=== PATIENT | female | born 1955 | race Two or more races ===

== ENCOUNTER → 2017-05-09 | Outpatient (CLI) | payer MEDICARE ==
[~2017-05-09] MED LIST: ACET-709 PO; PRED10TA14 PO; PRED20TA PO
== END ==
LOC: RAD 14:51
PROVIDERS: ATTEND Specialist
DX: M17.12 Unilateral primary osteoarthritis, left knee (principal); M25.462 Effusion, left knee; M06.9 Rheumatoid arthritis, unspecified; M81.0 Age-related osteoporosis without current pathological fracture
CPT/HCPCS: 77077

== ENCOUNTER → 2017-07-15 | Outpatient (CLI) | payer MEDICARE | END | disposition home or self-care (01) | LOC: CFH 07:45 | PROVIDERS: ATTEND Family Medicine | DX: Z12.31 Encounter for screening mammogram for malignant neoplasm of breast (principal) | CPT/HCPCS: 77067 ==

== ENCOUNTER 2018-03-21 10:33 | Emergency (ER) | payer MEDICARE ==
[~2018-03-21] VITALS: Ht 170.2 cm; Wt 92.0 kg
[2018-03-21 11:23] LABS: BASOPHILS # (AUTO) 0.01 x10^3/uL (0-0.1); BASOPHILS % (AUTO) 0 % (0-1); EOSINOPHILS # (AUTO) 0.23 x10^3/uL (0-0.4); EOSINOPHILS % (AUTO) 3 % (1-7); LYMPHOCYTES # (AUTO) 0.98 x10^3/uL (1-3.4); LYMPHOCYTES % (AUTO) 10 % (22-44); MD NO; MEAN CORPUSCULAR HEMOGLOBIN 29.1 pg (27.0-34.8); MEAN CORPUSCULAR HGB CONC 32.6 g/dL (32.4-35.8); MEAN CORPUSCULAR VOLUME 89.2 fL (80-100); MEAN PLATELET VOLUME 6.4 fL (7.4-10.4); MONOCYTES # (AUTO) 0.26 x10^3/uL (0.2-0.8); MONOCYTES % (AUTO) 3 % (2-9); NEUTROPHILS # (AUTO) 8.03 x10^3/uL (1.8-6.8); NEUTROPHILS % (AUTO) 84 % (42-75); PLATELET COUNT 345 x10^3/uL (130-400); RED BLOOD COUNT 4.23 x10^6/uL (3.82-5.3); RED CELL DISTRIBUTION WIDTH 13.7 % (9.6-15.2)
[2018-03-21 11:36] LABS: TROPONIN I < 0.015 ng/mL (0.000-0.045)
[2018-03-21 11:40] LABS: ALANINE AMINOTRANSFERASE 16 U/L (12-78); ALBUMIN 3.3 g/dL (3.4-5.0); ANION GAP 6 mmol/L (5-15); CALCIUM 8.2 mg/dL (8.5-10.1); CHLORIDE 108 mmol/L (98-107); CREATININE 0.81 mg/dL (0.55-1.02)
[2018-03-21 11:42] LABS: ALKALINE PHOSPHATASE 45 U/L (45-117); BILIRUBIN,TOTAL 0.6 mg/dL (0.2-1.0); TOTAL PROTEIN 7.5 g/dL (6.4-8.2)
[2018-03-21] MEDS ORDERED: KETOROLAC 30 MG/1 ML ONE (12:29)
[2018-03-21] MEDS ORDERED: DIAZEPAM 5 MG TABLET ONE (12:30)
[2018-03-21] MEDS ORDERED: DIAZEPAM 5 MG TABLET PO ONE (12:30)
[2018-03-21] MEDS ORDERED: KETOROLAC 30 MG/1 ML IM ONE (12:30)
[2018-03-21] MEDS ORDERED: METH2.5T PO (12:42)
[2018-03-21] MEDS ORDERED: ALEN70TA5 PO (12:42)
[2018-03-21] MEDS ORDERED: PRED5TAB PO (12:42)
[2018-03-21] MEDS ORDERED: SULF500T47 PO (12:42)
[2018-03-21 14:30] VITALS: BP 136/68
== END 2018-03-21 14:51 | disposition home or self-care (01) ==
LOC: ED 14:30
DX: M54.6 Pain in thoracic spine (principal); R06.00 Dyspnea, unspecified; M06.9 Rheumatoid arthritis, unspecified
CPT/HCPCS: 36415; 71046; 72072; 80053; 84484; 85025; 93005; 96372; 99284; J1885

== ENCOUNTER 2018-07-04 10:37 | Emergency (ER) | payer MEDICARE ==
[~2018-07-04] VITALS: Ht 170.2 cm; Wt 86.8 kg
[~2018-07-04 10:37] MED LIST changes: +ALEN70TA6 PO; +METH2.5T PO; +PRED5TAB PO; +SULF500T47 PO
[2018-07-04] MEDS ORDERED: METOCLOPRAMIDE 5 MG/ML, 2ML IVPush ONE (11:30)
[2018-07-04] MEDS ORDERED: SODIUM CHLORIDE FLUSH 10ML SYR IVF ONE (11:30)
[2018-07-04 11:46] LABS: BASOPHILS # (AUTO) 0.01 x10^3/uL (0-0.1); BASOPHILS % (AUTO) 0 % (0-1); EOSINOPHILS # (AUTO) 0.28 x10^3/uL (0-0.4); EOSINOPHILS % (AUTO) 5 % (1-7); LYMPHOCYTES # (AUTO) 1.26 x10^3/uL (1-3.4); LYMPHOCYTES % (AUTO) 24 % (22-44); MD NO; MEAN CORPUSCULAR HEMOGLOBIN 28.5 pg (27.0-34.8); MEAN CORPUSCULAR HGB CONC 32.8 g/dL (32.4-35.8); MEAN PLATELET VOLUME 6.4 fL (7.4-10.4); MONOCYTES # (AUTO) 0.34 x10^3/uL (0.2-0.8); MONOCYTES % (AUTO) 6 % (2-9); NEUTROPHILS # (AUTO) 3.41 x10^3/uL (1.8-6.8); NEUTROPHILS % (AUTO) 64 % (42-75); PLATELET COUNT 278 x10^3/uL (130-400); RED BLOOD COUNT 4.11 x10^6/uL (3.82-5.3); RED CELL DISTRIBUTION WIDTH 14.5 % (9.6-15.2)
[2018-07-04] MEDS ORDERED: METOCLOPRAMIDE 5 MG/ML, 2ML ONE (11:52)
[2018-07-04 11:57] LABS: CHLORIDE 103 mmol/L (98-107)
[2018-07-04 12:03] LABS: ALBUMIN 3.2 g/dL (3.4-5.0); ANION GAP 7 mmol/L (5-15); CALCIUM 8.2 mg/dL (8.5-10.1); CREATININE 0.88 mg/dL (0.55-1.02)
[2018-07-04] MEDS ORDERED: KETOROLAC 30 MG/1 ML IVPush ONE (13:00)
--- NOTE | 2018-07-04 13:08 | NUR ---
REPORT TAKEN FROM NIHARIKA MARIANO, ASSUMING CARE AT THIS TIME. PT UP TO BATHROOM WITH STEADY GAIT, PT TO RECEIVE TORADOL AND BE DISCHARGED.
[2018-07-04] MEDS ORDERED: KETOROLAC 30 MG/1 ML ONE (13:14)
[2018-07-04 13:48] VITALS: BP 128/64
--- NOTE | 2018-07-04 13:49 | NUR ---
PT REPORTS HEADACHE RESOLVED. PT A&OX4, RESPS EVEN AND UNLABORED. NEURO INTACT. PT GIVEN DC INSTRUCTIONS AND SCRIPT. PT EDUCATED REGARDING DC RX FOR AUGMENTIN, NAPROXEN, AND FLONASE. PT AMB TO DC DESK WITH STEADY GAIT, NADN AT DC.
== END 2018-07-04 13:50 | disposition home or self-care (01) ==
LOC: ED 12:31
DX: R51 Headache (principal); J01.00 Acute maxillary sinusitis, unspecified; M06.9 Rheumatoid arthritis, unspecified
CPT/HCPCS: 36415; 70450; 80048; 82040; 85025; 96374; 96375; 99284; J1885; J2765

== ENCOUNTER 2018-10-23 20:45 | Inpatient (IN) | payer MEDICARE ==
[~2018-10-23] VITALS: Ht 170.2 cm; Wt 95.0 kg
[2018-10-23] MEDS ORDERED: ACETAMINOPHEN 500 MG TABLET PO ONE (21:00)
[2018-10-23] MEDS ORDERED: SODIUM CHLORIDE FLUSH 10ML SYR IVF ONE (21:00)
[2018-10-23] MEDS ORDERED: KETOROLAC 30 MG/1 ML IVPush ONE (21:00)
[2018-10-23] MEDS ORDERED: ACETAMINOPHEN 500 MG TABLET ONE (21:04)
[2018-10-23 21:27] LABS: BASOPHILS # (AUTO) 0.01 x10^3/uL (0-0.1); BASOPHILS % (AUTO) 0 % (0-1); EOSINOPHILS # (AUTO) 0.01 x10^3/uL (0-0.4); EOSINOPHILS % (AUTO) 0 % (1-7); LYMPHOCYTES # (AUTO) 0.56 x10^3/uL (1-3.4); LYMPHOCYTES % (AUTO) 4 % (22-44); MD NO; MEAN CORPUSCULAR HEMOGLOBIN 30.4 pg (27.0-34.8); MEAN CORPUSCULAR HGB CONC 32.7 g/dL (32.4-35.8); MEAN CORPUSCULAR VOLUME 92.9 fL (80-100); MEAN PLATELET VOLUME 6.7 fL (7.4-10.4); MONOCYTES % (AUTO) 4 % (2-9); NEUTROPHILS # (AUTO) 11.84 x10^3/uL (1.8-6.8); NEUTROPHILS % (AUTO) 92 % (42-75); PLATELET COUNT 169 x10^3/uL (130-400); RED BLOOD COUNT 4.22 x10^6/uL (3.82-5.3); RED CELL DISTRIBUTION WIDTH 15.4 % (9.6-15.2)
[2018-10-23] MEDS ORDERED: KETOROLAC 30 MG/1 ML ONE (21:34)
[2018-10-23 21:35] LABS: PROTHROMBIN TIME 10.5 Seconds (9.6-11.5)
[2018-10-23 21:36] LABS: ALANINE AMINOTRANSFERASE 26 U/L (12-78); ALBUMIN 2.9 g/dL (3.4-5.0); ANION GAP 8 mmol/L (5-15); CALCIUM 8.5 mg/dL (8.5-10.1); CHLORIDE 100 mmol/L (98-107)
[2018-10-23 21:38] LABS: ALKALINE PHOSPHATASE 94 U/L (45-117); BILIRUBIN,TOTAL 0.6 mg/dL (0.2-1.0); TOTAL PROTEIN 7.3 g/dL (6.4-8.2)
--- NOTE | 2018-10-23 21:40 | NUR ---
PT HERE FOR FEVER, BODY ACHES AND COUGH X 1 WEEK. PT MEDICATED FOR PAIN AND FEVER. PT UP TO BATHROOM FOR UA SAMPLE
--- NOTE | 2018-10-23 21:54 | NUR ---
UA SENT TO LAB. TEMP IMPROVED TO 100.1. VSS. CALL LIGHT IN REACH
[2018-10-23] MEDS ORDERED: SODIUM CHLORIDE 0.9% 1,000ML IVBOLUS ONE (22:00)
[2018-10-23 22:05] LABS: CULTURE INDICATED? YES; MICROSCOPIC INDICATED
[2018-10-23] MEDS ORDERED: CEFTRIAXONE PMX 1GM/50ML 50 ML IV ONE (22:30)
[2018-10-23] MEDS ORDERED: CEFTRIAXONE PMX 1GM/50ML 50 ML ONE (22:35)
--- NOTE | 2018-10-23 22:47 | NUR ---
ABX AND FLUIDS RUNNING. ADMITTING MD AT BEDSIDE
[2018-10-23] MEDS ORDERED: ONDANSETRON 2MG/ML, 2ML IVPush PRN (23:00)
[2018-10-23 23:42] VITALS: BP 133/75
[2018-10-24] MEDS: SODIUM CHLORIDE 0.9% 1,000 ML IV SCH ×3 (00:06→16:45)
[2018-10-24] MEDS ORDERED: ACETAMINOPHEN 500 MG TABLET PO PRN (00:30)
[2018-10-24] MEDS: ACETAMINOPHEN 325 MG TABLET PO PRN ×3 (00:42→19:30)
[2018-10-24 03:53] VITALS: BP 127/81
[2018-10-24 05:05] LABS: BASOPHILS % (AUTO) 0 % (0-1); EOSINOPHILS # (AUTO) 0.06 x10^3/uL (0-0.4); EOSINOPHILS % (AUTO) 1 % (1-7); LYMPHOCYTES # (AUTO) 0.91 x10^3/uL (1-3.4); LYMPHOCYTES % (AUTO) 8 % (22-44); MD NO; MEAN CORPUSCULAR HEMOGLOBIN 30.4 pg (27.0-34.8); MEAN CORPUSCULAR HGB CONC 32.7 g/dL (32.4-35.8); MEAN CORPUSCULAR VOLUME 92.8 fL (80-100); MONOCYTES # (AUTO) 0.92 x10^3/uL (0.2-0.8); MONOCYTES % (AUTO) 8 % (2-9); NEUTROPHILS # (AUTO) 9.76 x10^3/uL (1.8-6.8); NEUTROPHILS % (AUTO) 84 % (42-75); PLATELET COUNT 144 x10^3/uL (130-400); RED BLOOD COUNT 3.68 x10^6/uL (3.82-5.3); RED CELL DISTRIBUTION WIDTH 15.6 % (9.6-15.2)
[2018-10-24 05:15] LABS: ANION GAP 8 mmol/L (5-15); CALCIUM 7.8 mg/dL (8.5-10.1); CHLORIDE 105 mmol/L (98-107); CREATININE 0.95 mg/dL (0.55-1.02)
[2018-10-24 05:25] LABS: THYROID STIMULATING HORMONE 0.428 mIU/L (0.358-3.740)
[2018-10-24 07:00] VITALS: BP 142/84
[2018-10-24] MEDS ORDERED: CEFTRIAXONE PMX 1GM/50ML 50 ML IV SCH (09:00)
[2018-10-24 13:00] VITALS: BP 145/75
[2018-10-24] MEDS: CEFTRIAXONE PMX 2GM/50ML 50 ML IV SCH (17:50)
[2018-10-24 19:02] VITALS: BP 139/76
[2018-10-25] MEDS: SODIUM CHLORIDE 0.9% 1,000 ML IV SCH ×3 (00:17→17:00)
[2018-10-25 01:05] VITALS: BP 132/63
[2018-10-25] MEDS: CEFTRIAXONE PMX 2GM/50ML 50 ML IV SCH ×2 (05:22→17:00)
[2018-10-25 05:28] LABS: BASOPHILS # (AUTO) 0.02 x10^3/uL (0-0.1); BASOPHILS % (AUTO) 0 % (0-1); EOSINOPHILS # (AUTO) 0.09 x10^3/uL (0-0.4); EOSINOPHILS % (AUTO) 1 % (1-7); LYMPHOCYTES # (AUTO) 1.15 x10^3/uL (1-3.4); LYMPHOCYTES % (AUTO) 14 % (22-44); MD NO; MEAN CORPUSCULAR HEMOGLOBIN 29.3 pg (27.0-34.8); MEAN CORPUSCULAR HGB CONC 31.5 g/dL (32.4-35.8); MEAN PLATELET VOLUME 7.1 fL (7.4-10.4); MONOCYTES # (AUTO) 0.68 x10^3/uL (0.2-0.8); MONOCYTES % (AUTO) 8 % (2-9); NEUTROPHILS # (AUTO) 6.17 x10^3/uL (1.8-6.8); NEUTROPHILS % (AUTO) 76 % (42-75); PLATELET COUNT 144 x10^3/uL (130-400); RED BLOOD COUNT 3.85 x10^6/uL (3.82-5.3); RED CELL DISTRIBUTION WIDTH 15.7 % (9.6-15.2)
[2018-10-25 05:40] LABS: ANION GAP 5 mmol/L (5-15); CHLORIDE 111 mmol/L (98-107)
[2018-10-25 05:41] LABS: CREATININE 0.93 mg/dL (0.55-1.02)
[2018-10-25 06:15] LABS: HCT (SEDRATE) 35.8 % (34.6-47.8)
[2018-10-25 07:51] VITALS: BP 163/83
[2018-10-25 13:00] VITALS: BP 151/87
[2018-10-25 18:54] VITALS: BP 167/82
[2018-10-26 01:58] VITALS: BP 164/80
[2018-10-26 05:17] LABS: BASOPHILS # (AUTO) 0.02 x10^3/uL (0-0.1); BASOPHILS % (AUTO) 0 % (0-1); EOSINOPHILS # (AUTO) 0.17 x10^3/uL (0-0.4); EOSINOPHILS % (AUTO) 2 % (1-7); LYMPHOCYTES % (AUTO) 22 % (22-44); MD NO; MEAN CORPUSCULAR HEMOGLOBIN 30.4 pg (27.0-34.8); MEAN CORPUSCULAR HGB CONC 32.8 g/dL (32.4-35.8); MEAN CORPUSCULAR VOLUME 92.7 fL (80-100); MEAN PLATELET VOLUME 6.9 fL (7.4-10.4); MONOCYTES # (AUTO) 0.51 x10^3/uL (0.2-0.8); MONOCYTES % (AUTO) 7 % (2-9); NEUTROPHILS # (AUTO) 5.24 x10^3/uL (1.8-6.8); NEUTROPHILS % (AUTO) 69 % (42-75); PLATELET COUNT 164 x10^3/uL (130-400); RED BLOOD COUNT 3.75 x10^6/uL (3.82-5.3); RED CELL DISTRIBUTION WIDTH 15.7 % (9.6-15.2)
[2018-10-26] MEDS: CEFTRIAXONE PMX 2GM/50ML 50 ML IV SCH (05:17)
[2018-10-26 05:31] LABS: ANION GAP 9 mmol/L (5-15); CALCIUM 8.1 mg/dL (8.5-10.1); CHLORIDE 108 mmol/L (98-107); CREATININE 0.95 mg/dL (0.55-1.02)
[2018-10-26 08:13] VITALS: BP 147/78
[2018-10-26] MEDS: ACETAMINOPHEN 325 MG TABLET PO PRN (08:48)
[2018-10-26] MEDS: SODIUM CHLORIDE 0.9% 1,000 ML IV SCH (12:31)
[2018-10-26 13:31] VITALS: BP 141/84
[2018-10-26] MEDS ORDERED: LEVOFLOXACIN 750 MG TABLET PO SCH (19:00)
[2018-10-26 20:16] VITALS: BP 153/66
[2018-10-27 01:46] VITALS: BP 120/76
[2018-10-27] MEDS: SODIUM CHLORIDE 0.9% 1,000 ML IV SCH (05:20)
[2018-10-27 05:24] LABS: HCT (SEDRATE) 34.8 % (34.6-47.8)
[2018-10-27 05:26] LABS: BASOPHILS # (AUTO) 0.03 x10^3/uL (0-0.1); BASOPHILS % (AUTO) 0 % (0-1); EOSINOPHILS % (AUTO) 3 % (1-7); LYMPHOCYTES # (AUTO) 1.67 x10^3/uL (1-3.4); LYMPHOCYTES % (AUTO) 21 % (22-44); MD NO; MEAN CORPUSCULAR HEMOGLOBIN 30.4 pg (27.0-34.8); MEAN CORPUSCULAR HGB CONC 32.8 g/dL (32.4-35.8); MEAN CORPUSCULAR VOLUME 92.7 fL (80-100); MEAN PLATELET VOLUME 6.6 fL (7.4-10.4); MONOCYTES # (AUTO) 0.41 x10^3/uL (0.2-0.8); MONOCYTES % (AUTO) 5 % (2-9); NEUTROPHILS # (AUTO) 5.59 x10^3/uL (1.8-6.8); NEUTROPHILS % (AUTO) 71 % (42-75); PLATELET COUNT 200 x10^3/uL (130-400); RED BLOOD COUNT 3.74 x10^6/uL (3.82-5.3); RED CELL DISTRIBUTION WIDTH 15.2 % (9.6-15.2)
[2018-10-27 05:36] LABS: ANION GAP 7 mmol/L (5-15); CALCIUM 8.3 mg/dL (8.5-10.1); CHLORIDE 107 mmol/L (98-107); CREATININE 0.91 mg/dL (0.55-1.02)
[2018-10-27 07:08] VITALS: BP 161/85
[2018-10-27 08:41] VITALS: BP 136/84
[2018-10-27] MEDS: ACETAMINOPHEN 325 MG TABLET PO PRN (12:29)
[2018-10-27 13:22] VITALS: BP 135/84
[2018-10-27] MEDS ORDERED: LEVO750T26 PO (13:28)
[2018-10-29] MEDS ORDERED: CYAN250013 PO (19:29)
== END 2018-10-27 15:11 | disposition home or self-care (01) | DRG 872 ==
LOC: ED 22:01 → EDIP 22:31 → 3NE 23:10 → DCLOUNGE 10-27 14:55
PROVIDERS: ADMIT Internal Medicine; ATTEND Internal Medicine
DX: A41.9 Sepsis, unspecified organism (principal); N10 Acute pyelonephritis; E86.0 Dehydration; M06.9 Rheumatoid arthritis, unspecified
CPT/HCPCS: 36415; 71045; 80048; 80053; 81001; 83605; 84145; 84443; 85025; 85610; 85651; 85730; 86140; 87040; 87077; 87086; 87186; 96374; 96375; 99285; G0378; J0696; J1885; J2405; J7030; J7512

== ENCOUNTER 2018-11-02 23:21 | Observation (INO) | payer MEDICARE ==
[~2018-11-02] VITALS: Ht 170.2 cm; Wt 95.1 kg
[~2018-11-02 23:21] MED LIST changes: +CYAN250013 PO; +LEVO750T26 PO
--- NOTE | 2018-11-02 23:35 | NUR ---
PATIENT TAKEN TO CT SCAN.
--- NOTE | 2018-11-03 00:05 | NUR ---
pt called to room from lobby
[2018-11-03 00:11] LABS: BASOPHILS # (AUTO) 0.04 x10^3/uL (0-0.1); BASOPHILS % (AUTO) 1 % (0-1); EOSINOPHILS % (AUTO) 4 % (1-7); LYMPHOCYTES # (AUTO) 2.74 x10^3/uL (1-3.4); LYMPHOCYTES % (AUTO) 33 % (22-44); MD NO; MEAN CORPUSCULAR HEMOGLOBIN 30.2 pg (27.0-34.8); MEAN CORPUSCULAR HGB CONC 32.6 g/dL (32.4-35.8); MEAN CORPUSCULAR VOLUME 92.7 fL (80-100); MEAN PLATELET VOLUME 5.8 fL (7.4-10.4); MONOCYTES # (AUTO) 0.48 x10^3/uL (0.2-0.8); MONOCYTES % (AUTO) 6 % (2-9); NEUTROPHILS # (AUTO) 4.67 x10^3/uL (1.8-6.8); NEUTROPHILS % (AUTO) 57 % (42-75); PLATELET COUNT 572 x10^3/uL (130-400); RED BLOOD COUNT 4.17 x10^6/uL (3.82-5.3); RED CELL DISTRIBUTION WIDTH 14.9 % (9.6-15.2)
--- NOTE | 2018-11-03 00:11 | NUR ---
PT. REPORTS NUMBNESS IN BILAT ARMS FROM HAND TO SHOULDERS. PT. REPORTS HAS BEEN TAKING SUPPLEMENTS ORDERED LAST WEEK. REPORTS NUMBNESS HAS BEEN INCREASING. MID BACK PAIN; DENIES INJURY. CT SCANS ARE RESULTED ALREADY. LABS DRAWN. DR. ALVARADO AT TO EVAL PT. AND DISCUSS POC NOW.
[2018-11-03 00:20] LABS: ANION GAP 8 mmol/L (5-15); CALCIUM 8.5 mg/dL (8.5-10.1); CHLORIDE 107 mmol/L (98-107); CREATININE 0.92 mg/dL (0.55-1.02)
[2018-11-03 00:39] LABS: C-REACTIVE PROTEIN, QUANT 0.81 mg/dL (0.02-0.49)
[2018-11-03 01:21] LABS: HCT (SEDRATE) 38.6 % (34.6-47.8)
--- NOTE | 2018-11-03 01:30 | NUR ---
MRI SCREENING FORM HANDED TO WILNER FROM RADIOLOGY.
--- NOTE | 2018-11-03 02:37 | NUR ---
PT. IS OUT OF ROOM IN MRI.
--- NOTE | 2018-11-03 03:15 | NUR ---
PT. REMAINS OUT OF ROOM FOR MRI.
[2018-11-03] MEDS ORDERED: GADOBUTROL 10 MMOL/10 ML PFS ONE (03:49)
--- NOTE | 2018-11-03 03:55 | NUR ---
PT. REMAINS OUT OF ROOM IN MRI.
--- NOTE | 2018-11-03 04:13 | NUR ---
PT. RETURNED FROM MRI AT THIS TIME.
--- NOTE | 2018-11-03 04:29 | NUR ---
PT. AMBULATORY TO BR DOWN MOLINA WITH STEADY GAIT.
[2018-11-03] MEDS ORDERED: KETOROLAC 30 MG/1 ML ONE (04:55)
--- NOTE | 2018-11-03 04:59 | NUR ---
PT. REQUESTING PAIN MEDS. DISCUSSED WITH DR. ALVARADO, NEW ORDERS RECEIVED. PT. MEDICATED PER JUN. MRI RESULTS PENDING.
[2018-11-03] MEDS ORDERED: KETOROLAC 30 MG/1 ML IVPush ONE (05:00)
--- NOTE | 2018-11-03 05:23 | NUR ---
PT. REPORTS PAIN IS NO BETTER 10/10 BILAT ARMS DESPITE PAIN MEDS. WILL DISCUSS WITH ERP.
--- NOTE | 2018-11-03 05:25 | NUR ---
DR. ALVARADO MADE AWARE OF PT. C/O 02/05 BILAT ARM PAIN. NO NEW ORDERS AT THIS TIME. HE WILL SPEAK WITH PT. SOON TO DISCUSS ED FINDINGS.
--- NOTE | 2018-11-03 05:47 | NUR ---
DR. ALVARADO AT BS NOW.
--- NOTE | 2018-11-03 05:56 | NUR ---
PT. TO BE ADMIT.
--- NOTE | 2018-11-03 06:11 | NUR ---
PT. CONTINUES TO C/O 10/10 UPPER SHOULDER AND BILAT ARM PAIN. WILL DISCUSS WITH ERP AGAIN. PT. STATES SHE DID TELL HIM WHEN HE WAS IN FOR RECHECK. NO NEW ORDERS HAVE BEEN RECEIVED.
[2018-11-03] MEDS ORDERED: OXYcodone/APAP 5/325MG TABLET ONE (06:16)
[2018-11-03] MEDS ORDERED: PRED5TAB PO (06:21)
[2018-11-03] MEDS ORDERED: POTA10TA5 PO (06:21)
[2018-11-03] MEDS ORDERED: CEFD300C37 PO (06:21)
[2018-11-03] MEDS ORDERED: OXYcodone/APAP 5/325MG TABLET PO ONE (06:30)
--- NOTE | 2018-11-03 06:47 | NUR ---
FIRST ATTEMPT TO CALL REPORT TO FLOOR.
--- NOTE | 2018-11-03 06:54 | NUR ---
REPORT TO NIHARIKA FLOWER. FLOOR READY FOR PT. TRANSPORT.
[2018-11-03 07:23] VITALS: BP 149/93
[2018-11-03 13:54] VITALS: BP 131/86
[2018-11-03] MEDS ORDERED: LIDODERM 5% PATCH TD PRN (14:30)
[2018-11-03] MEDS ORDERED: ENOXAPARIN 40 MG/0.4 ML SQ SCH (14:30)
[2018-11-03] MEDS ORDERED: DOCUSATE 100 MG CAPSULE PO PRN (14:30)
[2018-11-03] MEDS ORDERED: LABETALOL 5MG/ML, 20ML IVPush PRN (14:30)
[2018-11-03] MEDS ORDERED: ONDANSETRON ODT 4 MG PO PRN (14:30)
[2018-11-03] MEDS ORDERED: BISACODYL 10 MG SUPP PR PRN (14:30)
[2018-11-03] MEDS ORDERED: hydrALAzine 20 MG/ML, 1ML IVPush PRN (14:30)
[2018-11-03] MEDS ORDERED: ACETAMINOPHEN 325 MG TABLET PO PRN (14:30)
[2018-11-03] MEDS ORDERED: GABA100C PO (16:10)
[2018-11-03] MEDS ORDERED: ACET325T26 PO (16:10)
[2018-11-03] MEDS ORDERED: FAMOTIDINE 20 MG TABLET PO SCH (21:00)
[2018-11-03] MEDS ORDERED: CEFDINIR 300 MG CAPSULE PO SCH (21:00)
[2018-11-03] MEDS ORDERED: POTASSIUM CHLORIDE 10 MEQ TABLET.ER PO SCH (21:00)
== END 2018-11-03 18:32 | disposition home or self-care (01) ==
LOC: ED 11-03 01:22 → 4NOR 11-03 07:02 → ED 11-03 10:08 → INTOOBSV 11-03 10:09 → 4NOR 11-03 10:09
PROVIDERS: ADMIT Internal Medicine; ATTEND Internal Medicine
DX: R20.2 Paresthesia of skin (principal); M62.81 Muscle weakness (generalized); M54.6 Pain in thoracic spine; M25.78 Osteophyte, vertebrae; Z79.899 Other long term (current) drug therapy; Z87.39 Personal history of other diseases of the musculoskeletal system and connective tissue
CPT/HCPCS: 36415; 72125; 72128; 72156; 72157; 80048; 83735; 85025; 85651; 86140; 96374; 99285; A9585; G0378; J1885; Q0162

== ENCOUNTER 2020-02-18 06:37 | Inpatient (IN) | payer MEDICARE ==
[~2020-02-18] VITALS: Ht 170.2 cm; Wt 109.9 kg
[~2020-02-18 06:37] MED LIST changes: +ACET325T26 PO; +CEFD300C37 PO; +GABA100C PO; +POTA10TA5 PO
[2020-02-18 07:51] LABS: BASOPHILS % (AUTO) 1 % (0-1); EOSINOPHILS % (AUTO) 3 % (1-7); LYMPHOCYTES % (AUTO) 15 % (22-44); MEAN CORPUSCULAR HEMOGLOBIN 30.2 pg (27.0-34.8); MEAN CORPUSCULAR HGB CONC 33.1 g/dL (32.4-35.8); MEAN PLATELET VOLUME 6.5 fL (7.4-10.4); MONOCYTES % (AUTO) 7 % (2-9); NEUTROPHILS % (AUTO) 76 % (42-75); PLATELET COUNT 188 x10^3/uL (130-400); RED BLOOD COUNT 4.58 x10^6/uL (3.82-5.3); RED CELL DISTRIBUTION WIDTH 13.3 % (9.6-15.2)
[2020-02-18 07:53] LABS: MD NO
--- NOTE | 2020-02-18 07:58 | NUR ---
INFECTION PREVENTIONIST: PT TO ROOM FROM LOBBY VIA W/C
[2020-02-18 08:00] LABS: ALBUMIN 3.1 g/dL (3.4-5.0); ANION GAP 6 mmol/L (5-15); CALCIUM 8.2 mg/dL (8.5-10.1); CHLORIDE 93 mmol/L (98-107)
[2020-02-18 08:05] LABS: ALANINE AMINOTRANSFERASE 31 U/L (12-78); ALKALINE PHOSPHATASE 63 U/L (45-117); BILIRUBIN,TOTAL 0.9 mg/dL (0.2-1.0); CREATININE 0.89 mg/dL (0.55-1.02); TOTAL PROTEIN 6.9 g/dL (6.4-8.2)
--- NOTE | 2020-02-18 08:37 | NUR ---
PT CHART REVIEWED AND PLACED FOR RECHECK.
--- NOTE | 2020-02-18 08:47 | NUR ---
PT TO ROOM 36 W/ C/O COUGH, WEKNESS, FATIGUE, MILD PEREZ X 2 DAYS. DENIES ANY KNOWN EXPOSURE TO COVID-19. PT STATES FAMILY AT HOME W/O SX. PT RESTING ON [employer]. KAREN. MONITORS APPLIED. VSS.
--- NOTE | 2020-02-18 09:09 | NUR ---
PT RESTING ON GURNEY. NADN. CARMONA.
[2020-02-18] MEDS ORDERED: ACETAMINOPHEN 500 MG TABLET PO ONE (10:00)
[2020-02-18] MEDS ORDERED: KETOROLAC 30 MG/1 ML IVPush ONE (10:00)
[2020-02-18] MEDS ORDERED: CEFTRIAXONE PMX 1GM/50ML 50 ML IV ONE (10:30)
[2020-02-18] MEDS ORDERED: SODIUM CHLORIDE 0.9% 1,000 ML IV ONE (10:30)
[2020-02-18] MEDS ORDERED: POTASSIUM CHLORIDE 40 MEQ in SODIUM CHLORIDE 0.9% 500 ML IV ONE (10:30)
[2020-02-18] MEDS ORDERED: DOXYCYCLINE 100 MG in DEXTROSE 5% 250 ML IV SCH (10:30)
[2020-02-18] MEDS ORDERED: KETOROLAC 30 MG/1 ML ONE (10:42)
[2020-02-18] MEDS ORDERED: CEFTRIAXONE PMX 1GM/50ML 50 ML ONE (10:42)
[2020-02-18] MEDS ORDERED: ACETAMINOPHEN 500 MG TABLET ONE (10:42)
--- NOTE | 2020-02-18 11:05 | NUR ---
PT RESTING ON GURNEY. NADN. CARMONA.
[2020-02-18 11:57] LABS: RAPID INFLUENZA A Negative (Negative); RAPID INFLUENZA B Negative (Negative)
--- NOTE | 2020-02-18 12:06 | NUR ---
PT RESTING ON GURNEY. NADN. CARMONA.
--- NOTE | 2020-02-18 13:11 | NUR ---
REPORT GIVEN TO ADRIANNE MORRIS RN. ALL QUESTIONS ANSWERED. AWAITING PT TRANSPORT.
[2020-02-18 13:46] VITALS: BP 107/65
[2020-02-18] MEDS ORDERED: VANCOMYCIN PER PHARMACY MC PRN (16:00)
[2020-02-18] MEDS ORDERED: VANCOMYCIN PMX 1GM/200ML 200 ML IV ONE (16:00)
[2020-02-18] MEDS ORDERED: GUAIFENESIN/DM 200-20MG, 10ML UDC PO PRN (16:00)
[2020-02-18] MEDS ORDERED: ONDANSETRON 2MG/ML, 2ML IVPush PRN (16:00)
[2020-02-18] MEDS ORDERED: ACETAMINOPHEN 325 MG TABLET PO PRN (16:00)
[2020-02-18] MEDS ORDERED: POLYETHYLENE GLYCOL 17 GM PACKET PO PRN (16:00)
[2020-02-18] MEDS ORDERED: VANCOMYCIN 2,500 MG in SODIUM CHLORIDE 0.9% 500 ML IV ONE (17:00)
[2020-02-18] MEDS ORDERED: PHARMACOKINETIC CONSULTATION MC ONE (17:00)
[2020-02-18] MEDS ORDERED: PHARMACOKINETIC MONITORING MC PRN (17:00)
[2020-02-18] MEDS: SODIUM CHLORIDE 0.9% 1,000 ML IV SCH (17:10)
[2020-02-18] MEDS: PIPERACILLIN/TAZO/PMX 3.375GM 50 ML IV SCH ×2 (17:10→23:04)
[2020-02-18] MEDS: ENOXAPARIN 40 MG/0.4 ML SQ SCH (17:18)
[2020-02-18] MEDS: POTASSIUM CHLORIDE 20 MEQ TAB.ER.PRT PO SCH (17:18)
[2020-02-18] MEDS ORDERED: BUTALB/APAP/CAFFEINE 50MG/325MG/40MG PO PRN (21:00)
[2020-02-18] MEDS: GABAPENTIN 100 MG CAPSULE PO SCH (21:27)
[2020-02-18 21:55] VITALS: BP 169/84
[2020-02-19] MEDS ORDERED: DOXYCYCLINE 100 MG in DEXTROSE 5% 250 ML IV SCH
[2020-02-19 02:04] VITALS: BP 110/68
[2020-02-19] MEDS: PIPERACILLIN/TAZO/PMX 3.375GM 50 ML IV SCH ×4 (04:00→21:46)
[2020-02-19 05:14] LABS: BASOPHILS % (AUTO) 1 % (0-1); EOSINOPHILS % (AUTO) 5 % (1-7); LYMPHOCYTES % (AUTO) 22 % (22-44); MEAN CORPUSCULAR HEMOGLOBIN 30.1 pg (27.0-34.8); MEAN PLATELET VOLUME 6.4 fL (7.4-10.4); MONOCYTES % (AUTO) 12 % (2-9); NEUTROPHILS % (AUTO) 60 % (42-75); PLATELET COUNT 178 x10^3/uL (130-400); RED BLOOD COUNT 4.17 x10^6/uL (3.82-5.3); RED CELL DISTRIBUTION WIDTH 13.4 % (9.6-15.2)
[2020-02-19 05:24] LABS: ALANINE AMINOTRANSFERASE 22 U/L (12-78); ALBUMIN 2.7 g/dL (3.4-5.0); ANION GAP 8 mmol/L (5-15); CALCIUM 8.2 mg/dL (8.5-10.1); CHLORIDE 109 mmol/L (98-107); CREATININE 0.81 mg/dL (0.55-1.02)
[2020-02-19 05:27] LABS: ALKALINE PHOSPHATASE 49 U/L (45-117); BILIRUBIN,TOTAL 0.7 mg/dL (0.2-1.0); TOTAL PROTEIN 5.9 g/dL (6.4-8.2)
[2020-02-19 05:31] LABS: MD NO
[2020-02-19 07:07] VITALS: BP 128/77
[2020-02-19] MEDS: POTASSIUM CHLORIDE 20 MEQ TAB.ER.PRT PO SCH ×2 (08:10→11:51)
[2020-02-19] MEDS: GABAPENTIN 100 MG CAPSULE PO SCH ×2 (08:10→21:45)
[2020-02-19] MEDS: SODIUM CHLORIDE 0.9% 1,000 ML IV SCH ×2 (08:11→17:24)
[2020-02-19] MEDS ORDERED: CEFTRIAXONE PMX 1GM/50ML 50 ML IV SCH (10:30)
[2020-02-19 12:57] VITALS: BP 135/65
[2020-02-19] MEDS: ENOXAPARIN 40 MG/0.4 ML SQ SCH (15:46)
[2020-02-19] MEDS: VANCOMYCIN 2,200 MG in SODIUM CHLORIDE 0.9% 500 ML IV SCH (17:24)
[2020-02-19 18:34] VITALS: BP 126/71
[2020-02-20 01:23] VITALS: BP 139/85
[2020-02-20] MEDS: SODIUM CHLORIDE 0.9% 1,000 ML IV SCH (04:53)
[2020-02-20] MEDS: PIPERACILLIN/TAZO/PMX 3.375GM 50 ML IV SCH ×3 (04:53→16:00)
[2020-02-20 05:11] LABS: ANION GAP 5 mmol/L (5-15); CALCIUM 7.9 mg/dL (8.5-10.1); CHLORIDE 109 mmol/L (98-107); CREATININE 0.82 mg/dL (0.55-1.02)
[2020-02-20 05:23] LABS: BASOPHILS % (AUTO) 1 % (0-1); EOSINOPHILS % (AUTO) 6 % (1-7); LYMPHOCYTES % (AUTO) 25 % (22-44); MEAN CORPUSCULAR HEMOGLOBIN 30.1 pg (27.0-34.8); MEAN CORPUSCULAR HGB CONC 33.1 g/dL (32.4-35.8); MEAN PLATELET VOLUME 6.9 fL (7.4-10.4); MONOCYTES % (AUTO) 15 % (2-9); NEUTROPHILS % (AUTO) 55 % (42-75); PLATELET COUNT 198 x10^3/uL (130-400); RED BLOOD COUNT 3.91 x10^6/uL (3.82-5.3); RED CELL DISTRIBUTION WIDTH 13.4 % (9.6-15.2)
[2020-02-20 05:31] LABS: MD NO
[2020-02-20 06:31] VITALS: BP 148/82
[2020-02-20] MEDS: POTASSIUM CHLORIDE 20 MEQ TAB.ER.PRT PO SCH ×2 (08:29→14:54)
[2020-02-20] MEDS: GABAPENTIN 100 MG CAPSULE PO SCH (08:29)
[2020-02-20] MEDS ORDERED: MAGNESIUM OXIDE 400 MG TABLET PO SCH (09:00)
[2020-02-20] MEDS ORDERED: MAGNESIUM SULFATE PMX 2GM/50ML 50 ML IV ONE (13:00)
[2020-02-20 14:18] VITALS: BP 161/99
[2020-02-20] MEDS: ENOXAPARIN 40 MG/0.4 ML SQ SCH (16:00)
[2020-02-20] MEDS: VANCOMYCIN 2,200 MG in SODIUM CHLORIDE 0.9% 500 ML IV SCH (17:00)
[2020-02-20] MEDS ORDERED: LACT1TAB13 PO (17:25)
[2020-02-20] MEDS ORDERED: AMOX1TAB12 PO (17:25)
[2020-02-20] MEDS ORDERED: MAGN400T50 PO (17:25)
[2020-02-20] MEDS ORDERED: DOXY100T PO (17:25)
[2020-02-20] MEDS ORDERED: DOXYCYCLINE 100MG TABLET PO SCH (21:00)
[2020-02-20] MEDS ORDERED: AMOXICILLIN/CLAV 875-125MG TABLET PO SCH (21:00)
== END 2020-02-20 19:01 | disposition home or self-care (01) | DRG 178 ==
LOC: SUATTDRO 11:12 → ED 12:45 → EDIP 15:35 → 4WST 16:00
PROVIDERS: ADMIT Internal Medicine; ATTEND Internal Medicine
DX: J15.6 Pneumonia due to other Gram-negative bacteria (principal); E87.1 Hypo-osmolality and hyponatremia; D84.9 Immunodeficiency, unspecified; E87.6 Hypokalemia; M06.9 Rheumatoid arthritis, unspecified; B34.9 Viral infection, unspecified; E83.42 Hypomagnesemia; Z82.49 Family history of ischemic heart disease and other diseases of the circulatory system; Z83.3 Family history of diabetes mellitus; Z79.899 Other long term (current) drug therapy
CPT/HCPCS: 36415; 71045; 80048; 80053; 83605; 83690; 83735; 85025; 87040; 87400; 93005; 96365; 96375; 99291; G0378; J0696; J1650; J1885; J2543; J3370; J3480; J7060; J3475; J7030; J7040; J7512